=== PATIENT | female | born 1985 | race Two or more races ===

== ENCOUNTER 2018-07-14 14:33 | Emergency (ER) | payer OTHER ==
[~2018-07-14] VITALS: Ht 149.9 cm; Wt 135.1 kg
[2018-07-14] MEDS ORDERED: MOTRIN600 MG PO (16:12)
[2018-07-14] MEDS ORDERED: FLEXERIL10 MG PO (16:12)
[2018-07-14 16:48] VITALS: BP 136/101
== END 2018-07-14 16:48 | disposition home or self-care (01) ==
LOC: EME 14:33 → RME 14:33
DX: S29.012A Strain of muscle and tendon of back wall of thorax, initial encounter (principal); R07.81 Pleurodynia; V49.50XA Passenger injured in collision with unspecified motor vehicles in traffic accident, initial encounter
CPT/HCPCS: 71046; 99281; 99284